=== PATIENT | female | born 1985 | race Two or more races ===

== ENCOUNTER 2021-05-29 22:36 | Emergency (ER) | payer SELFPAY ==
[~2021-05-29] VITALS: Ht 167.6 cm; Wt 52.2 kg
[2021-05-29] MEDS ORDERED: SODIUM CHLORIDE 0.9% 1,000 ML IVB ONE (23:45)
[2021-05-29 23:51] LABS: Basophils # (auto) 0.1 10 ^3/uL (0-0.2); Basophils % (auto) 0.8 % (0.0-2.0); Eosinophils # (auto) 0.3 10 ^3/uL (0-0.8); Hematocrit 42.5 % (36.0-46.0); Hemoglobin 13.7 g/dL (12.2-16.2); Lymphocytes % (auto) 27.1 % (10.0-50.0); Mean Corpuscular Hemoglobin 29.2 pg (28.0-32.0); Mean Corpuscular Hgb Conc. 32.3 g/dL (32.0-36.0); Mean Corpuscular Volume 90.3 fL (80.0-100.0); Monocytes # (auto) 0.5 10 ^3/uL (0-1.3); Monocytes % (auto) 6.7 % (0.0-12.0); Neutrophils # (auto) 4.6 10 ^3/uL (1.6-8.6); Neutrophils % (auto) 61.4 % (37.0-80.0); Nucleated Red Blood Cells % 0.1 %; Red Cell Distribution Width 12.8 % (11.8-14.3); White Blood Cell 7.5 10^3/uL (4.4-10.8)
[2021-05-30 00:25] LABS: Salicylate < 1.7 mg/dL (2.8-20.0)
[2021-05-30 00:26] LABS: Alanine Aminotransferase 27 U/L (13-56); Albumin 4.2 g/dL (3.4-5.0); Anion Gap 2 (5-15); Aspartate Aminotransferase 30 U/L (15-37); Blood Alcohol < 3.0 mg/dL (0-5); Blood Urea Nitrogen 12 mg/dL (7-18); Calcium 9.6 mg/dL (8.5-10.1); Carbon Dioxide 31 mmol/L (21-32); Chloride 106 mmol/L (98-107); GFR African American 104 mL/min; GFR Non-African American 86 mL/min; Glucose 101 mg/dL (74-106); Magnesium 2.3 mg/dL (1.6-2.6)
[2021-05-30 00:29] LABS: Acetaminophen < 2.0 ug/mL (10-30); Alkaline Phosphatase 97 U/L (45-117); Bilirubin, Total 0.7 mg/dL (0.2-1.0); Total Protein 8.3 g/dL (6.4-8.2)
[2021-05-30 00:35] LABS: Potassium 5.1 mmol/L (3.5-5.1); Sodium 139 mmol/L (136-145)
[2021-05-30 00:39] VITALS: BP 105/62
== END 2021-05-30 00:51 ==
LOC: ER 22:36
DX: Z76.5 Malingerer [conscious simulation] (principal)
CPT/HCPCS: 36415; 80053; 80320; 80329; 83735; 85025